=== PATIENT | male | born 1975 | race Caucasian/White ===

== ENCOUNTER 2022-08-23 10:55 | Inpatient (IN) | payer OTHER ==
[2022-08-23 11:49] VITALS: BMI 30.2
[2022-08-23] MEDS ORDERED: IBUPROFEN 400 MG TABLET (FP) PO PRN (13:47)
[2022-08-23] MEDS ORDERED: MAG HYDROX/AL HYDROX/SIMETH 30 ML UNIT-DOSE CUP PO PRN (13:47)
[2022-08-23] MEDS ORDERED: ONDANSETRON *ODT* 4 MG TABLET SL PRN (13:47)
[2022-08-23] MEDS ORDERED: BENZONATATE 200 MG CAPSULE PO PRN (13:47)
[2022-08-23] MEDS ORDERED: IBUPROFEN 600 MG TABLET (FP) PO PRN (13:47)
[2022-08-23] MEDS ORDERED: NALOXONE HCL (KLOXXADO) 8 MG SPRAY NS PRN (13:47)
[2022-08-23] MEDS ORDERED: ACETAMINOPHEN 325 MG TABLET (FP) PO PRN (13:47)
[2022-08-23] MEDS ORDERED: MAGNESIUM HYDROX 2400MG/30ML ORAL SUSPENSION 30 ML CUP PO PRN (13:47)
[2022-08-23] MEDS ORDERED: LOPERAMIDE HCL 2 MG CAPSULE PO PRN (13:47)
[2022-08-23] MEDS ORDERED: NALOXONE HCL 0.4 MG/ML VIAL IM PRN (13:47)
[2022-08-23] MEDS ORDERED: guaiFENesin 600 MG TABLET.ER (FP) PO PRN (13:47)
[2022-08-23] MEDS ORDERED: METHOCARBAMOL 500 MG TABLET PO PRN (13:47)
[2022-08-23] MEDS ORDERED: BENZOCAINE/MENTHOL (CHLORASEPTIC ) LOZENGE MM PRN (13:47)
[2022-08-23] MEDS ORDERED: DICYCLOMINE HCL 10 MG CAPSULE PO PRN (13:47)
[2022-08-23] MEDS ORDERED: POLYETHYLENE GLYCOL (HEALTHYLAX) 3350 17 GM PACKET PO PRN (13:47)
[2022-08-23] MEDS ORDERED: BISMUTH SUBSALICYLATE 524 MG/30 ML PO PRN (13:47)
[2022-08-23] MEDS: BACITRACIN ZINC 15 GM TUBE TOPICAL OINTMENT TP SCH (15:48)
[2022-08-23] MEDS: LORazepam 1 MG TABLET PO PRN (15:48)
[2022-08-23] MEDS ORDERED: LORazepam 1 MG TABLET ONE (15:49)
[2022-08-23] MEDS: LORazepam 2 MG TABLET PO SCH ×2 (17:13→22:13)
[2022-08-23] MEDS: THIAMINE HCL 100 MG TABLET (FP) PO SCH (22:13)
[2022-08-23] MEDS: MELATONIN 5 MG TABLETS PO SCH (22:13)
[2022-08-24] MEDS: LORazepam 2 MG TABLET PO SCH ×4 (05:17→22:00)
[2022-08-24] MEDS: PRENATAL VITAMINS W/ FOLIC ACID TABLET (FP) PO SCH (10:06)
[2022-08-24] MEDS: BACITRACIN ZINC 15 GM TUBE TOPICAL OINTMENT TP SCH (10:06)
[2022-08-24 13:09] LABS: POTASSIUM 3.5 mmol/L (3.5-5.1)
[2022-08-24 13:10] LABS: HEMATOCRIT 41.6 % (35.4-49); HEMOGLOBIN 13.7 GM/dL (11.7-16.9); MCH 30.5 pg (25.7-33.7); MCHC 33.1 g/dl (32.0-35.9); MEAN CELL VOLUME 92.3 fl (80-96); MEAN PLT VOLUME 9.4 fl (7.5-11.1); PLATELET COUNT 87 10^3/uL (134-434); RDW 14.7 % (11.9-15.9); WHITE BLOOD COUNT 5.4 K/mm3 (4.0-10.0)
[2022-08-24 13:13] LABS: BLOOD UREA NITROGEN 9.8 mg/dL (7-18); CALCIUM 8.8 mg/dL (8.5-10.1)
[2022-08-24 13:16] LABS: CREATININE 0.7 mg/dL (0.55-1.3)
[2022-08-24 13:18] LABS: BILIRUBIN,TOTAL 3.3 mg/dL (0.2-1); TOT PROT 6.6 g/dl (6.4-8.2)
[2022-08-24] MEDS: propRANOLol HCL 10 MG TABLET PO SCH (13:29)
[2022-08-24] MEDS: GABAPENTIN 300 MG CAPSULE PO SCH ×2 (13:30→21:59)
[2022-08-24] MEDS: SERTRALINE HCL 50 MG TABLET (FP) PO SCH (13:30)
[2022-08-24] MEDS: LACTULOSE 20 GM/30 ML UDC (FOR ORAL USE ONLY) PO SCH ×3 (14:02→22:00)
[2022-08-24] MEDS: THIAMINE HCL 100 MG TABLET (FP) PO SCH (21:59)
[2022-08-24] MEDS: MELATONIN 5 MG TABLETS PO SCH (21:59)
[2022-08-25] MEDS: hydrOXYzine PAMOATE 25 MG CAPSULE (FP) PO PRN ×2 (02:34→10:25)
[2022-08-25] MEDS: LORazepam 1 MG TABLET PO PRN (02:34)
[2022-08-25] MEDS: LORazepam 1 MG TABLET PO SCH ×4 (05:17→22:39)
[2022-08-25 09:23] VITALS: BP 127/69; PULSE 84; RESP 18; TEMP 98.4
[2022-08-25] MEDS ORDERED: BACITRACIN 0.9 GM PACKET TP SCH (10:00)
[2022-08-25] MEDS ORDERED: LORazepam 2 MG TABLET PO ONE (10:00)
[2022-08-25] MEDS: SERTRALINE HCL 50 MG TABLET (FP) PO SCH (10:25)
[2022-08-25] MEDS: GABAPENTIN 300 MG CAPSULE PO SCH ×2 (10:25→22:39)
[2022-08-25] MEDS: PRENATAL VITAMINS W/ FOLIC ACID TABLET (FP) PO SCH (10:25)
[2022-08-25] MEDS: LACTULOSE 20 GM/30 ML UDC (FOR ORAL USE ONLY) PO SCH ×4 (10:25→22:38)
[2022-08-25] MEDS: propRANOLol HCL 10 MG TABLET PO SCH (10:50)
[2022-08-25] MEDS: THIAMINE HCL 100 MG TABLET (FP) PO SCH (22:39)
[2022-08-25] MEDS: MELATONIN 5 MG TABLETS PO SCH (22:39)
[2022-08-26] MEDS ORDERED: LORazepam 0.5 MG TABLET PO PRN
[2022-08-26] MEDS ORDERED: LORazepam 0.5 MG TABLET PO SCH (05:00)
[2022-08-27] MEDS ORDERED: LORazepam 0.5 MG TABLET PO ONE (05:00)
== END 2022-08-26 01:53 | disposition short-term general hospital (02) | DRG 775 ==
LOC: YASAS 10:55 → Y6N 15:06
PROVIDERS: ADMIT Allergy & Immunology; ATTEND Surgery
PROC: HZ2ZZZZ Detoxification Services for Substance Abuse Treatment (ICD-10-PCS; principal; 2022-08-23)
DX: F10.230 Alcohol dependence with withdrawal, uncomplicated (principal); F10.282 Alcohol dependence with alcohol-induced sleep disorder; F10.24 Alcohol dependence with alcohol-induced mood disorder; F32.A Depression, unspecified; F99 Mental disorder, not otherwise specified; I10 Essential (primary) hypertension; K70.30 Alcoholic cirrhosis of liver without ascites; R79.89 Other specified abnormal findings of blood chemistry; R41.0 Disorientation, unspecified; Z86.69 Personal history of other diseases of the nervous system and sense organs
CPT/HCPCS: 36415; 80053; 82140; 85027; 86780; 87635; 87811

== ENCOUNTER 2022-08-25 11:16 | Inpatient (IN) | payer OTHER ==
[2022-08-25 12:09] LABS: BASO % 2.6 % (0-2.0); EOS % 6.1 % (0-4.5); HEMATOCRIT 42.4 % (35.4-49); HEMOGLOBIN 14.1 GM/dL (11.7-16.9); LYMPH % 33.1 % (8-40); MCH 30.9 pg (25.7-33.7); MCHC 33.2 g/dl (32.0-35.9); MEAN CELL VOLUME 93.1 fl (80-96); MEAN PLT VOLUME 9.2 fl (7.5-11.1); MONO % 11.4 % (3.8-10.2); NEUT % 46.8 % (42.8-82.8); PLATELET COUNT 100 10^3/uL (134-434); RBC 4.55 M/mm3 (4.00-5.60); RDW 14.3 % (11.9-15.9); WHITE BLOOD COUNT 6.3 K/mm3 (4.0-10.0)
[2022-08-25 12:12] LABS: VENOUS BASE EXCESS -0.2 mmol/L (-2-2); VENOUS O2 SATURATION 82.1 % (70-80); VENOUS PCO2 40.6 mmHg (38-52); VENOUS PH 7.399 (7.310-7.410)
[2022-08-25 12:15] LABS: INR 1.16 (0.83-1.09); PROTHROMBIN TIME (PATIENT) 13.4 SEC (9.7-13.0)
[2022-08-25 12:17] LABS: ACTIVATED PTT 32.4 SECONDS (25.2-36.5)
[2022-08-25 12:59] LABS: POTASSIUM 4.3 mmol/L (3.5-5.1)
[2022-08-25 13:02] LABS: ALBUMIN 3.4 g/dl (3.4-5.0); BLOOD UREA NITROGEN 9.8 mg/dL (7-18); CALCIUM 9.7 mg/dL (8.5-10.1)
[2022-08-25 13:05] LABS: CREATININE 0.8 mg/dL (0.55-1.3)
[2022-08-25 13:07] LABS: BILIRUBIN,TOTAL 2.5 mg/dL (0.2-1); TOT PROT 7.4 g/dl (6.4-8.2)
[2022-08-25] MEDS ORDERED: diazePAM CARPU-JECT 10 MG/2 ML DISP.SYRIN ONE (13:20)
[2022-08-25] MEDS ORDERED: diazePAM CARPU-JECT 10 MG/2 ML DISP.SYRIN IVPUSH ONE ×3 (13:20→18:15)
[2022-08-25] MEDS ORDERED: HALOPERIDOL LACTATE 5 MG/ML IM ONE ×4 (13:21→18:08)
[2022-08-25] MEDS ORDERED: MIDAZOLAM HCL 2 MG/2 ML SINGLE DOSE VIAL ONE (13:26)
[2022-08-25] MEDS ORDERED: MIDAZOLAM HCL 2 MG/2 ML SINGLE DOSE VIAL IVPUSH ONE (13:26)
[2022-08-25] MEDS ORDERED: KETAMINE HCL 500 MG/10 ML VIAL ONE (13:30)
[2022-08-25] MEDS ORDERED: KETAMINE HCL 200 MG/20 ML VIAL IVPUSH ONE (13:30)
[2022-08-25] MEDS ORDERED: SODIUM CHLORIDE 1,000 ML IV STA (13:38)
[2022-08-25] MEDS ORDERED: DEXMEDETOMIDINE PREMIX 400 MCG/100 ML BAG IVPB SCH (17:00)
[2022-08-25] MEDS ORDERED: diazePAM 5 MG TABLET PO SCH (17:00)
[2022-08-25] MEDS ORDERED: diazePAM 5 MG TABLET PO PRN (17:51)
[2022-08-25] MEDS ORDERED: MIDAZOLAM IN 0.9 % SOD.CHLORID 1 MG/1 ML PLAST..BAG ONE (17:52)
[2022-08-25] MEDS ORDERED: LACTULOSE 20 GM/30 ML UDC (FOR ORAL USE ONLY) PO PRN (17:55)
[2022-08-25] MEDS ORDERED: MIDAZOLAM IN 0.9 % SOD.CHLORID 100 MG/100 ML PLAST..BAG IVPB SCH (18:00)
[2022-08-25] MEDS: LACTULOSE 20 GM/30 ML UDC (FOR ORAL USE ONLY) PO SCH ×2 (18:29→22:51)
[2022-08-25] MEDS: ENOXAPARIN NA (PORCINE) 40 MG/0.4 ML DISP.SYRIN SQ SCH (18:39)
[2022-08-25] MEDS ORDERED: PHENobarbital SODIUM 65 MG/1 ML VIAL IVPUSH ONE (19:11)
[2022-08-25 19:13] VITALS: BMI 33.4
[2022-08-25] MEDS: LACTATED RINGERS SOLUTION 1,000 ML/1,000 ML INFUS.BAG IV SCH (20:20)
[2022-08-25] MEDS ORDERED: diazePAM CARPU-JECT 10 MG/2 ML DISP.SYRIN IVPUSH PRN (22:00)
[2022-08-25] MEDS: THIAMINE HCL 200 MG/2 ML VIAL IVPB SCH (22:50)
[2022-08-25] MEDS: MUPIROCIN 2% TOPICAL OINTMENT FOR DECOLONIZATION NS SCH (22:50)
[2022-08-25] MEDS: CHLORHEXIDINE GLUCONATE 4% CLEANSER FOR DECOLONIZATION TP SCH (22:51)
[2022-08-26] MEDS: THIAMINE HCL 200 MG/2 ML VIAL IVPB SCH ×4 (05:29→21:39)
[2022-08-26] MEDS: LACTULOSE 20 GM/30 ML UDC (FOR ORAL USE ONLY) PO SCH ×4 (05:29→21:37)
[2022-08-26 07:10] LABS: BASO % 1.1 % (0-2.0); EOS % 4.2 % (0-4.5); HEMATOCRIT 38.4 % (35.4-49); HEMOGLOBIN 13.2 GM/dL (11.7-16.9); INR 1.23 (0.83-1.09); LYMPH % 26.5 % (8-40); MCH 31.6 pg (25.7-33.7); MCHC 34.5 g/dl (32.0-35.9); MEAN CELL VOLUME 91.6 fl (80-96); MEAN PLT VOLUME 9.4 fl (7.5-11.1); MONO % 10.7 % (3.8-10.2); NEUT % 57.5 % (42.8-82.8); PLATELET COUNT 78 10^3/uL (134-434); PROTHROMBIN TIME (PATIENT) 14.2 SEC (9.7-13.0); RBC 4.19 M/mm3 (4.00-5.60); RDW 14.3 % (11.9-15.9); WHITE BLOOD COUNT 8.3 K/mm3 (4.0-10.0)
[2022-08-26 07:13] LABS: ACTIVATED PTT 32.4 SECONDS (25.2-36.5)
[2022-08-26 07:25] LABS: POTASSIUM 3.6 mmol/L (3.5-5.1)
[2022-08-26 07:28] LABS: CALCIUM 8.6 mg/dL (8.5-10.1)
[2022-08-26 07:29] LABS: BLOOD UREA NITROGEN 9.8 mg/dL (7-18); MAGNESIUM 1.8 mg/dL (1.8-2.4)
[2022-08-26 07:32] LABS: CREATININE 0.7 mg/dL (0.55-1.3); PHOSPHOROUS 2.6 mg/dL (2.5-4.9)
[2022-08-26 07:33] LABS: TOT PROT 6.5 g/dl (6.4-8.2)
[2022-08-26] MEDS ORDERED: LACTATED RINGERS SOLUTION 1000 ML INFUS.BAG IV ONE (10:15)
[2022-08-26] MEDS: MUPIROCIN 2% TOPICAL OINTMENT FOR DECOLONIZATION NS SCH ×2 (10:30→21:37)
[2022-08-26] MEDS: FOLIC ACID 1 MG TABLET (FP) PO SCH ×2 (13:07→13:23)
[2022-08-26] MEDS: ENOXAPARIN NA (PORCINE) 40 MG/0.4 ML DISP.SYRIN SQ SCH ×2 (13:07→13:25)
[2022-08-26] MEDS: LACTATED RINGERS SOLUTION 1,000 ML/1,000 ML INFUS.BAG IV SCH (19:15)
[2022-08-26] MEDS: CHLORHEXIDINE GLUCONATE 4% CLEANSER FOR DECOLONIZATION TP SCH (21:38)
[2022-08-27 03:47] VITALS: RESP 18
[2022-08-27] MEDS ORDERED: diazePAM 5 MG TABLET PO SCH (06:00)
[2022-08-27] MEDS: LACTULOSE 20 GM/30 ML UDC (FOR ORAL USE ONLY) PO SCH (06:26)
[2022-08-27] MEDS: THIAMINE HCL 200 MG/2 ML VIAL IVPB SCH (06:26)
[2022-08-27 07:15] LABS: HEMATOCRIT 39.7 % (35.4-49); HEMOGLOBIN 13.4 GM/dL (11.7-16.9); MCH 31.3 pg (25.7-33.7); MCHC 33.6 g/dl (32.0-35.9); MEAN CELL VOLUME 92.9 fl (80-96); MEAN PLT VOLUME 9.8 fl (7.5-11.1); PLATELET COUNT 76 10^3/uL (134-434); RBC 4.28 M/mm3 (4.00-5.60); WHITE BLOOD COUNT 6.7 K/mm3 (4.0-10.0)
[2022-08-27 07:35] LABS: POTASSIUM 3.3 mmol/L (3.5-5.1)
[2022-08-27 07:49] LABS: BILIRUBIN,TOTAL 2.6 mg/dL (0.2-1)
[2022-08-27 07:50] LABS: ALBUMIN 3.1 g/dl (3.4-5.0); PHOSPHOROUS 2.9 mg/dL (2.5-4.9)
[2022-08-27 07:51] VITALS: BP 135/88; PULSE 56; TEMP 98.1
[2022-08-27 07:51] LABS: BLOOD UREA NITROGEN 8.2 mg/dL (7-18); CREATININE 0.6 mg/dL (0.55-1.3); TOT PROT 6.8 g/dl (6.4-8.2)
[2022-08-27 07:53] LABS: CALCIUM 8.7 mg/dL (8.5-10.1); MAGNESIUM 1.9 mg/dL (1.8-2.4)
[2022-08-27 07:58] LABS: INR 1.22 (0.83-1.09); PROTHROMBIN TIME (PATIENT) 14.1 SEC (9.7-13.0)
[2022-08-27 08:00] LABS: ACTIVATED PTT 35.1 SECONDS (25.2-36.5)
[2022-08-27] MEDS ORDERED: POTASSIUM CHLORIDE ORAL LIQUID 20 MEQ/15 ML PO ONE (08:03)
[2022-08-28] MEDS ORDERED: diazePAM 5 MG TABLET PO SCH (06:00)
[2022-08-29] MEDS ORDERED: diazePAM 5 MG TABLET PO ONE (06:00)
[2022-08-29] MEDS ORDERED: THIAMINE HCL 200 MG/2 ML VIAL IVPB SCH (10:00)
== END 2022-08-27 09:30 | disposition left against medical advice (07) | DRG 770 ==
LOC: JER 11:16 → JERBED 14:42 → JICU 16:54
PROVIDERS: ADMIT Internal Medicine Pulmonary Disease; ATTEND Internal Medicine Pulmonary Disease
PROC: HZ2ZZZZ Detoxification Services for Substance Abuse Treatment (ICD-10-PCS; principal; 2022-08-25)
DX: F10.239 Alcohol dependence with withdrawal, unspecified (principal); R44.0 Auditory hallucinations; K76.82 Hepatic encephalopathy; K70.30 Alcoholic cirrhosis of liver without ascites
CPT/HCPCS: 36415; 70450-TC; 71045-TC-FY; 80053; 82140; 82803; 83036; 83605; 83735; 84100; 84484; 85025; 85027; 85610; 85730; 93005; 93010; 99285-25